=== PATIENT | male | born 1965 | race Caucasian/White ===

== ENCOUNTER → 2016-10-14 | Outpatient (REF) | payer BC, OTHER ==
[~2016-10-14] MED LIST: ACET50TA PO; ADVI200T PO; ALEV220T26 PO; CIPR500T89 PO; FLAG500T PO; HYDR12.56 PO; LISI5TAB PO; MULTTAB4 PO; OMEP20CA3 PO; POTA75TA PO; SIMV20TA2 PO; STOO100T PO; VICO5TA PO; XARE20TA PO; ZEST20TA8 PO
== END ==
LOC: M LAB REF 13:05
PROVIDERS: ATTEND Nurse Practitioner Family
DX: R25.2 Cramp and spasm (principal); I10 Essential (primary) hypertension; M79.662 Pain in left lower leg

== ENCOUNTER → 2016-12-21 | Outpatient (CLI) | payer BC, OTHER ==
--- NOTE | 2016-12-22 08:36 | REP ---
Lumbar spine series: Five views. History: Low back pain. Findings: Five views of the lumbar spine show preserved vertebral body heights and normal alignment. There is mild disc space narrowing at L3-4. Discogenic spurring is seen in the lower thoracic spine. Pedicles and posterior elements are intact. There is no evidence of spondylolysis or spondylolisthesis. A mild levoconvex curve is noted. Sacrum and SI joints are intact. Psoas margins are symmetric. Impression: Mild degenerative disc changes at L3-4. Mild levoconvex curve. Otherwise negative. Signed by Cliff Cuadra MD 12/22/2016 09:51 A
== END ==
LOC: M WUC 18:30
PROVIDERS: ATTEND Physician Assistant
DX: M54.5 Low back pain (principal)

== ENCOUNTER → 2017-04-16 | Outpatient (CLI) | payer OTHER | LOC: M WUC 14:30 | DX: S29.011A Strain of muscle and tendon of front wall of thorax, initial encounter (principal); X58.XXXA Exposure to other specified factors, initial encounter; Y92.89 Other specified places as the place of occurrence of the external cause; Y93.89 Activity, other specified; Y99.8 Other external cause status | CPT/HCPCS: 71101 ==

== ENCOUNTER → 2018-08-15 | Outpatient (CLI) | payer OTHER ==
[~2018-08-15] MED LIST changes: -ACET50TA PO; +MAPA500T17 PO
--- NOTE | 2018-08-15 12:10 | REP ---
MRI LEFT SHOULDER: TECHNIQUE: Axial T2 fat sat, gradient echo, sagittal oblique T2 fat sat, coronal oblique T1, T2 fat sat. There is increased signal involving the subscapularis and supraspinatus tendons. This does not appear to extend through the entire thickness of these tendons. Findings are compatible with moderate tendinopathy and possibly partial tearing of these tendons. There are mild to moderate hypertrophic degenerative changes of the acromioclavicular joint with slight downward sloping of the acromion. The acromion is type 2. Biceps tendon demonstrates increased signal in the bicipital groove consistent with the biceps tendon tear. No Hill-Sachs deformity. The deltoid muscle demonstrates no abnormal signal. There is fraying of the biceps labral complex. The superior labrum appears diffusely frayed and torn. Other portions of the labrum demonstrate no definite tear. I see no paralabral cyst. There is no occult fracture. There is mild fluid in the subacromial subdeltoid bursae. IMPRESSION: Moderate supraspinatus and subscapularis tendinopathy with possible partial tears of these tendons. Moderate hypertrophic degenerative changes of the acromioclavicular joint with a type 2 acromion. Abnormal increased signal involving the biceps tendon in the bicipital groove consistent with a tear of the biceps tendon. There is diffuse fraying and tearing of the superior labrum. There is mild fluid in the subacromial subdeltoid bursae. Electronically Signed by George Mayorga MD 08/16/2018 04:37 P
--- NOTE | 2018-08-16 03:44 | REP ---
Clinical: Trauma. Possible biceps tear. Technique: Real time espinosa scale and color ultrasound examination using linear high frequency transducer. Findings: Directed ultrasound examination of the distal left bicep muscle demonstrates normal muscular striations without fluid, hematoma, abscess, or obvious abnormality to suggest injury. Ultrasound examination of the contralateral distal right by set for comparison was performed and demonstrates similar findings. Impression: No obvious sonographic evidence for biceps injury. Electronically Signed by George Khan MD 08/16/2018 03:35 A
== END ==
LOC: M RAD 07:19
PROVIDERS: ATTEND Orthopaedic Surgery
DX: S46.012A Strain of muscle(s) and tendon(s) of the rotator cuff of left shoulder, initial encounter (principal); X58.XXXA Exposure to other specified factors, initial encounter; Y92.89 Other specified places as the place of occurrence of the external cause

== ENCOUNTER 2019-05-26 09:41 | Emergency (ER) | payer OTHER ==
[~2019-05-26] VITALS: Ht 182.9 cm; Wt 152.6 kg
[2019-05-26] MEDS ORDERED: LOSA100T50 (09:51)
[2019-05-26] MEDS ORDERED: NAPR-885 (09:51)
[2019-05-26] MEDS ORDERED: DILT1CAP3 (09:51)
[2019-05-26] MEDS ORDERED: FURO20TA2 (09:51)
[2019-05-26] MEDS ORDERED: ATOR1TAB21 (09:51)
[2019-05-26] MEDS ORDERED: NS 1,000 ML IV ONE (10:45)
[2019-05-26 11:22] LABS: BASO # 0.1 10^3/uL (0.0-0.2); BASO % 0.3 % (0.0-1.0); EOS % 0.2 % (0.0-3.0); HEMOGLOBIN 15.6 g/dl (13.5-17.5); LYMPH # 1.5 10^3/uL (1.5-5.0); LYMPH % 8.6 % (24.0-44.0); MEAN CORPUSCULAR HEMOGLOBIN 29.7 pg (27.0-33.0); MEAN CORPUSCULAR HGB CONC 33.2 g/dl (32.0-36.5); MEAN CORPUSCULAR VOLUME 89.5 fl (80.0-96.0); MONO # 1.5 10^3/uL (0.0-0.8); MONO % 8.5 % (0.0-5.0); NEUTROPHILS # 14.3 10^3/uL (1.5-8.5); NEUTROPHILS % 81.9 % (36.0-66.0); PLATELET COUNT, AUTOMATED 205 10^3/uL (150-450); RED BLOOD COUNT 5.25 10^6/uL (4.30-6.10); WHITE BLOOD COUNT 17.5 10^3/uL (4.0-10.0)
[2019-05-26 11:45] LABS: ALBUMIN 3.5 GM/DL (3.2-5.2); ALT/SGPT 41 U/L (12-78); BILIRUBIN,DIRECT 0.3 MG/DL (0.0-0.2); BILIRUBIN,TOTAL 1.1 MG/DL (0.2-1.0); BLOOD UREA NITROGEN 18 MG/DL (7-18); CALCIUM LEVEL 8.3 MG/DL (8.5-10.1); CARBON DIOXIDE LEVEL 24 MEQ/L (21-32); CHLORIDE LEVEL 109 MEQ/L (98-107); CREATININE FOR GFR 0.91 MG/DL (0.70-1.30); GLOMERULAR FILTRATION RATE > 60.0 (>56); GLUCOSE, FASTING 99 MG/DL (70-100); LIPASE 108 U/L (73-393); POTASSIUM SERUM 4.1 MEQ/L (3.5-5.1); SODIUM LEVEL 141 MEQ/L (136-145); TOTAL PROTEIN 6.6 GM/DL (6.4-8.2)
--- NOTE | 2019-05-26 11:59 | REP ---
Clinical: Fever and suprapubic pain. Technique: Axial noncontrast images from the lung bases to the pubic symphysis with coronal and sagittal re-formations. Comparison: 03/24/2013 Findings: Lung bases demonstrate a small area of suspected nodularity/scarring along the medial paraspinal right lower lobe. Stable hepatic cyst unchanged from 2013. Spleen, pancreas, gallbladder, bilateral adrenal glands and kidneys are normal for noncontrast evaluation. The enteric system is without obstruction or acute inflammatory process. Normal terminal ileum and appendix are identified in the right lower quadrant. Evidence of prior partial sigmoid resection. Scattered colonic diverticula noted without acute diverticulitis. Pelvis demonstrates collapsed bladder and stable prostatomegaly. No ascites. No free air. No adenopathy. Abdominal aorta without aneurysm. Musculoskeletal structures demonstrate age-related degenerative changes without acute osseous abnormality. Impression: 1. Chronic-appearing findings as described above. 2. No obvious acute abdominopelvic pathology appreciated. Electronically Signed by George Khan MD 05/26/2019 11:50 A
[2019-05-26 12:40] LABS: INFLUENZA A AMPLIFICATION NEGATIVE (NEGATIVE); INFLUENZA B AMPLIFICATION NEGATIVE (NEGATIVE)
[2019-05-26] MEDS ORDERED: KETOROLAC 30 MG/ML VIAL (J1885) IV ONE (13:30)
[2019-05-26] MEDS ORDERED: cefTRIAXone SOD 1 GM in D5W MINI-BAG PLUS 50 ML IV ONE (13:30)
[2019-05-26] MEDS ORDERED: ONDANSETRON 4MG/2ML VIAL (J2405) IV ONE (14:15)
[2019-05-26] MEDS ORDERED: MORPHINE 4 MG/ML 1ML VIAL/SYRINGE (J2270) IV ONE (14:15)
[2019-05-26] MEDS ORDERED: PHENAZOPYRIDINE 100 MG TAB PO ONE (15:00)
--- NOTE | 2019-05-26 15:01 | REP ---
Clinical: Elevated liver function tests and abdominal pain. Technique: Real time espinosa scale ultrasound examination using curved array transducer. Findings: The liver is enlarged measuring 23 cm craniocaudal length and demonstrates increased echogenicity suggesting fatty infiltration. No focal hepatic lesion identified. Incidental 4 centimeter cyst noted in the right lobe approaching the dome. The pancreas is unremarkable. The gallbladder demonstrates 7 mm polyp without gallstones or wall thickening. No biliary ductal dilatation is appreciated and the common bile duct measures 5.3 mm diameter. The right kidney is normal in reniform shape without hydronephrosis and measures 11.8 x 6.1 x 5.5 cm. No ascites. Impression: 1. Hepatomegaly and hepatic steatosis. 2. 4 cm simple hepatic cyst. 3. 7 mm benign appearing gallbladder polyp. Electronically Signed by George Khan MD 05/26/2019 02:53 P
[2019-05-26] MEDS ORDERED: PYRI1TAB5 PO (16:29)
[2019-05-26] MEDS ORDERED: CIPR-249 PO (16:36)
[2019-05-26] MEDS ORDERED: MAGNESIUM CITRATE 300 ML BTL PO ONE (16:45)
[2019-05-26 16:58] VITALS: BP 118/59
[2019-05-26 20:56] LABS: CHLAMYDIA DNA AMPLIFICATION NEGATIVE (NEGATIVE); GC DNA AMPLIFICATION NEGATIVE (NEGATIVE)
--- NOTE | 2019-05-27 06:32 | ED PDOC ---
Post-Departure Follow-Up dr stallings faxed formal report of us for fu Molly Joy MD May 27, 2019 06:32
== END 2019-05-26 17:06 | disposition home or self-care (01) ==
LOC: M ED 09:41
DX: N10 Acute pyelonephritis (principal); I10 Essential (primary) hypertension; G47.30 Sleep apnea, unspecified; F41.9 Anxiety disorder, unspecified; K21.9 Gastro-esophageal reflux disease without esophagitis; M19.90 Unspecified osteoarthritis, unspecified site; Z79.899 Other long term (current) drug therapy; Z99.89 Dependence on other enabling machines and devices; F17.210 Nicotine dependence, cigarettes, uncomplicated
CPT/HCPCS: 74176; 76705; 80048; 80076; 81001; 83690; 85025; 87040; 87088; 87186; 87491; 87502; 87591; 96374; 96375; 99284; J0696; J1885; J2270; J2405

== ENCOUNTER 2019-06-17 09:49 | Emergency (ER) | payer OTHER ==
[~2019-06-17] VITALS: Ht 182.9 cm; Wt 159.1 kg
[~2019-06-17 09:49] MED LIST changes: +ATOR1TAB21; +CIPR-249 PO; +DILT1CAP3; +FURO20TA2; +LOSA100T50; +NAPR-885; +PYRI1TAB5 PO
[2019-06-17] MEDS ORDERED: BUPIVACAINE HCL 0.25% 10 ML VIAL SC ONE (10:45)
[2019-06-17] MEDS ORDERED: ACETAMINOPHEN 325 MG TAB PO ONE (10:45)
[2019-06-17] MEDS ORDERED: CYCLOBENZAPRINE 10 MG TAB PO ONE (10:45)
[2019-06-17 11:29] VITALS: BP 142/67
[2019-06-17] MEDS ORDERED: META1TAB23 PO (12:01)
[2019-06-17] MEDS ORDERED: PERC5TAB12 PO (12:01)
[2019-06-18] MEDS ORDERED: OXYC1TAB23 (15:27)
[2019-06-18] MEDS ORDERED: META1TAB22 (15:27)
== END 2019-06-17 12:12 | disposition home or self-care (01) ==
LOC: M ED 09:49
DX: M54.6 Pain in thoracic spine (principal); G89.29 Other chronic pain; M46.94 Unspecified inflammatory spondylopathy, thoracic region; I10 Essential (primary) hypertension; G47.30 Sleep apnea, unspecified; K21.9 Gastro-esophageal reflux disease without esophagitis; F17.210 Nicotine dependence, cigarettes, uncomplicated; Z79.899 Other long term (current) drug therapy

== ENCOUNTER 2019-06-18 15:15 | Emergency (ER) | payer OTHER ==
[~2019-06-18] VITALS: Ht 182.9 cm; Wt 154.0 kg
[~2019-06-18 15:15] MED LIST changes: +META1TAB23 PO; +PERC5TAB12 PO
[2019-06-18] MEDS ORDERED: OXYC1TAB23 (15:27)
[2019-06-18] MEDS ORDERED: META1TAB22 (15:27)
[2019-06-18] MEDS ORDERED: diazePAM 10 MG TAB PO ONE (18:00)
[2019-06-18] MEDS ORDERED: LIDOCAINE 5% (LIDODERM) PATCH TD ONE (18:00)
[2019-06-18] MEDS ORDERED: KETOROLAC 60 MG/2 ML VIAL (J1885) IM ONE (18:00)
--- NOTE | 2019-06-18 19:01 | REPVR ---
PROCEDURE INFORMATION: Exam: CT Thoracic Spine Without Contrast Exam date and time: 06/18/2019 5:57 PM Age: 53 years old Clinical indication: Pain in thoracic spine; Additional info: Pain thoracic spine, no jennifer, meds no help TECHNIQUE: Imaging protocol: Computed tomography images of the thoracic spine without contrast. Radiation optimization: All CT scans at this facility use at least one of these dose optimization techniques: automated exposure control; mA and/or kV adjustment per patient size (includes targeted exams where dose is matched to clinical indication); or iterative reconstruction. COMPARISON: CR SPINE LS COMPLETE 12/21/2016 6:37 PM FINDINGS: Vertebrae: Degenerative spondylosis lower cervical spine. Mild degenerative spondylosis thoracic spine. Discs/Spinal canal/Neural foramina: [id number] degenerative spinal stenosis at T7-T8 and mild degenerative central spinal stenosis at T8-T9. Soft tissues: Unremarkable. Liver: Low-attenuation lesion in the right lobe of the liver measures 4.9 cm likely representing a cyst. IMPRESSION: 1. Iheo-[id number] degenerative spinal stenosis at T7-T8 and mild degenerative central spinal stenosis at T8-T9. 2. No acute findings. Electronically signed by: Favian Leslie On 06/18/2019 19:01:03 PM
--- NOTE | 2019-06-18 20:08 | REP ---
Chest x-ray: Two views. History: Scapular back pain . Comparison study: April 16, 2017 . Findings: The lungs are well inflated and free of infiltrate. The pleural angles are sharp. The heart size is normal. Pulmonary vasculature is not increased. No significant bony abnormality is seen. There are mild degenerative disc spurs in the mid and lower thoracic spine. Impression: Mild discogenic spurring in the lower thoracic spine. Otherwise negative chest x-ray. Electronically Signed by Cliff Cuadra MD 06/18/2019 07:59 P
--- NOTE | 2019-06-18 20:18 | REPVR ---
PROCEDURE INFORMATION: Exam: US Duplex Left Upper Extremity Veins, Limited Exam date and time: 06/18/2019 8:08 PM Age: 53 years old Clinical indication: Pain; Other: Numb/tingling; Arm, upper; Left; Additional info: Lue pain, tingling TECHNIQUE: Imaging protocol: Real-time Duplex ultrasound of the Left Upper Extremity with 2-D espinosa scale, color Doppler flow and spectral waveform analysis with image documentation. Limited exam focused on the left upper extremity veins. COMPARISON: No relevant prior studies available. FINDINGS: Left deep veins: Unremarkable. Axillary and brachial veins are patent throughout without thrombus. Normal Doppler waveforms. Normal compressibility and/or augmentation response. Visualized internal jugular and subclavian veins are patent. Left superficial veins: Unremarkable. Visualized cephalic and basilic veins are patent without thrombus. Soft tissues: Unremarkable. IMPRESSION: No acute findings. No evidence of deep vein thrombosis. Electronically signed by: Favian Leslie On 06/18/2019 20:17:42 PM
[2019-06-18 20:42] LABS: BASO # 0.1 10^3/uL (0.0-0.2); BASO % 0.7 % (0.0-1.0); EOS # 0.1 10^3/uL (0.0-0.5); EOS % 1.4 % (0.0-3.0); HEMATOCRIT 48.8 % (42.0-52.0); HEMOGLOBIN 15.8 g/dl (13.5-17.5); LYMPH # 2.8 10^3/uL (1.5-5.0); LYMPH % 33.2 % (24.0-44.0); MEAN CORPUSCULAR HEMOGLOBIN 28.9 pg (27.0-33.0); MEAN CORPUSCULAR HGB CONC 32.4 g/dl (32.0-36.5); MEAN CORPUSCULAR VOLUME 89.4 fl (80.0-96.0); MONO # 0.8 10^3/uL (0.0-0.8); MONO % 9.4 % (0.0-5.0); NEUTROPHILS # 4.6 10^3/uL (1.5-8.5); NEUTROPHILS % 54.8 % (36.0-66.0); PLATELET COUNT, AUTOMATED 239 10^3/uL (150-450); RED BLOOD COUNT 5.46 10^6/uL (4.30-6.10); WHITE BLOOD COUNT 8.4 10^3/uL (4.0-10.0)
[2019-06-18] MEDS ORDERED: **NOTE PATIENT COMMENT** MISC XX SCH (21:00)
[2019-06-18 21:13] LABS: CK-MB VALUE MASS 2.6 NG/ML (<3.6); CPK CREATINE PHOSPHOKINASE 1457 U/L (39-308); MB/CK RELATIVE INDEX 0.18 (< OR =4); TROPONIN I < 0.02 NG/ML (< 0.10)
--- NOTE | 2019-06-18 21:19 | ECGEPIP ---
[facility] - ED Test Date: 2019-06-18 Pat Name: RAHUL VAZQUEZ Department: Room: - Gender: Male [employer]: NALDO : 1965 Requested By: SIM Montelongo PA-C Order Number: [id number] Reading MD: Deepak Noe Measurements Intervals Gratz Rate: 56 P: 43 IL: 190 QRS: 47 QRSD: 104 T: 23 QT: 440 QTc: 426 Interpretive Statements SINUS BRADYCARDIA motion artifact Nonspecific ST-T wave abnormalities Comparison tracing not on file Electronically Signed on 06-18-2019 21:19:01 EST by Deepak Noe
[2019-06-18] MEDS ORDERED: MORPHINE 4 MG/ML 1ML VIAL/SYRINGE (J2270) IV ONE (22:00)
[2019-06-18] MEDS ORDERED: NS 1,000 ML IV ONE ×2 (22:00→22:45)
[2019-06-19] MEDS ORDERED: NORC1TAB7 PO ×2 (00:08→00:27)
[2019-06-19] MEDS ORDERED: ROBA750T4 PO ×2 (00:09→00:27)
[2019-06-19 00:15] VITALS: BP 137/85
[2019-06-19] MEDS ORDERED: NORCO 5/325MG TABLET (BULK FOR ED) PO ONE (00:15)
== END 2019-06-19 00:33 | disposition home or self-care (01) ==
LOC: M ED 15:15
DX: R74.8 Abnormal levels of other serum enzymes (principal); M54.9 Dorsalgia, unspecified; M48.04 Spinal stenosis, thoracic region; M25.78 Osteophyte, vertebrae; K76.89 Other specified diseases of liver; I10 Essential (primary) hypertension; E78.5 Hyperlipidemia, unspecified; F17.210 Nicotine dependence, cigarettes, uncomplicated; Z79.899 Other long term (current) drug therapy
CPT/HCPCS: 71046; 72128; 80047; 82550; 82553; 84484; 85025; 93005; 93971; 96361; 96372; 96374; 99284; J1885; J2270

== ENCOUNTER → 2019-07-07 | Outpatient (CLI) | payer OTHER ==
[~2019-07-07] MED LIST changes: +META1TAB22; +NORC1TAB7 PO; +OXYC1TAB23; +ROBA750T4 PO
--- NOTE | 2019-07-07 12:53 | REPVR ---
PROCEDURE INFORMATION: Exam: MR Cervical Spine Without Contrast Exam date and time: 07/07/2019 10:59 AM Age: 53 years old Clinical indication: Radiculopathy; Cervical region TECHNIQUE: Imaging protocol: Multiplanar magnetic resonance images of the cervical spine without contrast. COMPARISON: CR SPINE LS COMPLETE 12/21/2016 6:37 PM FINDINGS: Slightly limited by motion on multiple sequences. Straightened cervical spine with no segmental subluxation. Vertebral body height, morphology and marrow signal are normal, aside from degenerative reactive endplate osteophytes and endplate changes particularly at C5-C6 and C6-C7 with disc height loss and disc desiccation change at these levels. No fracture or destructive process. Cervical cord is normal in morphology and signal. Imaged structures within the posterior fossa are unremarkable. C2-3: No significant canal or foraminal stenosis. C3-4: Minor ridging disc/osteophyte complex slightly indenting the ventral thecal sac and effacing the ventral CSF space. Moderate left-sided and mild right-sided neural foraminal stenosis secondary to uncovertebral arthropathy. C4-C5: No spinal canal stenosis. Mild to moderate right neural foraminal stenosis secondary to asymmetric uncovertebral hypertrophy. C5-C6: Ridging disc/osteophyte complex with mild spinal canal stenosis and mild to moderate osseous neural foraminal stenoses. C6-C7: Ridging disc/osteophyte complex slightly asymmetrically worse to the right of midline narrowing the ventral CSF space, without indentation of the cord. Moderately severe right neural foraminal stenosis secondary to uncovertebral osteophytes. C7-T1: Asymmetric right foraminal disc protrusion or subligamentous disc extrusion narrowing the left neural foramen and measuring 4 mm AP No focal prevertebral soft tissue abnormality. IMPRESSION: 1. Left lateral foraminal disc protrusion or subligamentous disc extrusion at C7-T1 measuring 4 mm AP, narrowing the left neural foramen and potentially impacting the exiting nerve root. 2. Degenerative spondylosis C3-C4 through C6-C7 with mild canal stenosis and moderate foraminal stenoses as described above. No acute disc extrusion at these levels. Electronically signed by: Chet Prescott On 07/07/2019 12:52:45 PM
== END ==
LOC: M RAD 09:30
PROVIDERS: ATTEND Orthopaedic Surgery
DX: M54.12 Radiculopathy, cervical region (principal); M51.25 Other intervertebral disc displacement, thoracolumbar region; M47.892 Other spondylosis, cervical region; M48.02 Spinal stenosis, cervical region

== ENCOUNTER → 2020-09-11 | Outpatient (CLI) | payer BC ==
--- NOTE | 2020-09-12 08:18 | REP ---
INDICATION: SPRAIN RT KNEE, R/O FX. COMPARISON: No comparison radiographs. Comparison MRI study 09 November 2019.. TECHNIQUE: Axial, coronal, and sagittal imaging planes utilized. T1, proton density and T2 weighted scans are obtained in the usual fashion with without fat saturation. FINDINGS: Cortical and medullary bone signal intensity are normal. There is a mild to moderate joint effusion. A Rebollar's cyst is seen in the posteromedial popliteal soft tissues. The femoral trochlear notch is rather shallow in the patella is seen position somewhat lateral with regard to it. 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 These findings are unchanged. Anterior and posterior cruciate ligaments are intact. Patellar and quadriceps tendons are unremarkable. There is no evidence of medial or lateral collateral ligament disruption. There is some diffuse periarticular subcutaneous edema anteriorly and medially. This was present previously. The lateral meniscus remains intact in appearance. There is however a new complex tear involving the posterior horn of the medial meniscus along its superior margin. No displaced meniscal material is appreciated. Is no other articular cartilage lesion is appreciated. IMPRESSION: Interval complex tear posterior horn medial meniscus. Joint effusion and Rebollar's cyst. Some periarticular edema. Shallow trochlear groove and somewhat laterally positioned patella with central patellar chondromalacia <Electronically signed by Dmitriy Cuadra > 09/12/20 [id number]
== END ==
LOC: M RAD 17:36
PROVIDERS: ATTEND Physician Assistant
DX: S83.91XA Sprain of unspecified site of right knee, initial encounter (principal); X58.XXXA Exposure to other specified factors, initial encounter; Y92.9 Unspecified place or not applicable; M71.21 Synovial cyst of popliteal space [Baker], right knee

== ENCOUNTER → 2020-10-21 | Outpatient (CLI) | payer BC ==
[2020-10-21 17:59] LABS: BASO # 0.1 10^3/uL (0.0-0.2); BASO % 0.6 % (0.0-1.0); EOS # 0.1 10^3/uL (0.0-0.5); HEMATOCRIT 49.2 % (42.0-52.0); LYMPH # 2.1 10^3/uL (1.5-5.0); MEAN CORPUSCULAR HEMOGLOBIN 29.4 pg (27.0-33.0); MEAN CORPUSCULAR HGB CONC 32.5 g/dl (32.0-36.5); MEAN CORPUSCULAR VOLUME 90.3 fl (80.0-96.0); MONO % 12.5 % (2.0-8.0); NEUTROPHILS # 4.7 10^3/uL (1.5-8.5); NEUTROPHILS % 59.5 % (36.0-66.0); PLATELET COUNT, AUTOMATED 224 10^3/uL (150-450); RED BLOOD COUNT 5.45 10^6/uL (4.30-6.10)
== END ==
LOC: M PLALAB 14:50
DX: M17.11 Unilateral primary osteoarthritis, right knee (principal); S83.231D Complex tear of medial meniscus, current injury, right knee, subsequent encounter; X58.XXXD Exposure to other specified factors, subsequent encounter

== ENCOUNTER → 2022-09-29 | Outpatient (REF) | payer BC ==
[~2022-09-29] MED LIST changes: +DILT180C38; -DILT1CAP3; +LOSA100T46; -LOSA100T50
[2022-09-29 17:56] LABS: HEMOGLOBIN A1c 5.1 % (4.0-6.0)
[2022-09-29 18:09] LABS: ALBUMIN 3.9 G/DL (3.2-5.2); ALKALINE PHOSPHATASE 50 U/L (46-116); ALT/SGPT 51 U/L (7.0-40); AST/SGOT 31 U/L (<34); BILIRUBIN,TOTAL 0.6 MG/DL (0.3-1.2); BLOOD UREA NITROGEN 17 MG/DL (9-23); CALCIUM LEVEL 8.9 MG/DL (8.5-10.1); CARBON DIOXIDE LEVEL 26 MMOL/L (20-31); CHLORIDE LEVEL 106 MMOL/L (98-107); CHOLESTEROL LEVEL 124 MG/DL (<200); CHOLESTEROL RISK RATIO 3.55 (<5); CREATININE FOR GFR 0.92 MG/DL (0.70-1.30); GLOMERULAR FILTRATION RATE > 60.0 (>56); GLUCOSE, FASTING 68 MG/DL (60-100); HDL CHOLESTEROL 34.9 MG/DL (>40); LDL CHOLESTEROL 73.5 MG/DL (<100); NON-HDL-C 89.1 MG/DL; POTASSIUM SERUM 4.1 MMOL/L (3.5-5.1); SODIUM LEVEL 141 MMOL/L (136-145); TOTAL PROTEIN 6.6 G/DL (5.7-8.2); TRIGLYCERIDES LEVEL 78 MG/DL (<150)
== END ==
LOC: M LAB REF 16:22
PROVIDERS: ATTEND Internal Medicine
DX: E11.9 Type 2 diabetes mellitus without complications (principal); I10 Essential (primary) hypertension; E78.00 Pure hypercholesterolemia, unspecified

== ENCOUNTER → 2023-03-17 | Day surgery (SDC) | payer BC ==
[~2023-03-17] VITALS: Ht 182.9 cm; Wt 144.3 kg
[~2023-03-17] MED LIST changes: -ATOR1TAB21; +ATOR1TAB21 PO; +DILT180C39 PO; -FURO20TA2; +FURO20TA2 PO; +LIDOCAINE 2% 100MG/5ML SDV (FOR ANES.) As Ordered ONE; -LOSA100T46; +LOSA100T46 PO; +METF500T13 PO; +NS 1,000 ML IV ONE; +OMEP-173 PO; +SEMA2PEN; +THERTAB52 PO; +propofoL 200 MG/20 ML VIAL As Ordered ONE
[2023-03-17 07:53] VITALS: TEMP 96.9
[2023-03-17 08:08] VITALS: BP 141/83; O2SAT 93
== END | disposition home or self-care (01) ==
LOC: M OPP 06:54
PROVIDERS: ATTEND Surgery
DX: Z12.11 Encounter for screening for malignant neoplasm of colon (principal); Z12.12 Encounter for screening for malignant neoplasm of rectum; D12.2 Benign neoplasm of ascending colon; K57.30 Diverticulosis of large intestine without perforation or abscess without bleeding; Z87.19 Personal history of other diseases of the digestive system; K21.9 Gastro-esophageal reflux disease without esophagitis; I10 Essential (primary) hypertension; E77.9 Disorder of glycoprotein metabolism, unspecified; E78.00 Pure hypercholesterolemia, unspecified; G47.30 Sleep apnea, unspecified; Z79.899 Other long term (current) drug therapy; Z79.84 Long term (current) use of oral hypoglycemic drugs; F17.210 Nicotine dependence, cigarettes, uncomplicated

== ENCOUNTER → 2023-04-20 | Outpatient (REF) | payer BC ==
[~2023-04-20] MED LIST changes: -LIDOCAINE 2% 100MG/5ML SDV (FOR ANES.) As Ordered ONE; -NS 1,000 ML IV ONE; -propofoL 200 MG/20 ML VIAL As Ordered ONE
[2023-04-20 17:08] LABS: APPEARANCE, URINE HAZY (CLEAR); BACTERIA, URINE AUTO NEGATIVE (NEGATIVE); BILIRUBIN, URINE AUTO NEGATIVE (NEGATIVE); BLOOD, URINE BLOOD NEGATIVE (NEGATIVE); COLOR, URINE YELLOW (YELLOW); GLUCOSE, URINE (UA) AUTO NEGATIVE (NEGATIVE); KETONE, URINE AUTO NEGATIVE (NEGATIVE); LEUKOCYTE ESTERASE, URINE AUTO NEGATIVE (NEGATIVE); MUCUS, URINE SMALL (NEGATIVE); NITRITE, URINE AUTO NEGATIVE (NEGATIVE); PROTEIN, URINE AUTO 3+ mg/dL (NEGATIVE); RBC, URINE AUTO 4 /HPF (0-3); SQUAMOUS EPITHELIAL CELL UR AU 0 /HPF (0-6); UROBILINOGEN, URINE AUTO 0.2 mg/dL (0.0-2.0); WBC, URINE AUTO 2 /HPF (0-3)
[2023-04-20 17:17] LABS: BASO # 0.1 10^3/uL (0.0-0.2); BASO % 0.6 % (0.0-1.0); EOS # 0.1 10^3/uL (0.0-0.5); EOS % 0.7 % (0.0-3.0); HEMATOCRIT 51.2 % (42.0-52.0); LYMPH # 2.4 10^3/uL (1.5-5.0); LYMPH % 27.8 % (24.0-44.0); MEAN CORPUSCULAR HEMOGLOBIN 29.9 pg (27.0-33.0); MEAN CORPUSCULAR HGB CONC 33.2 g/dl (32.0-36.5); MEAN CORPUSCULAR VOLUME 90.1 fl (80.0-96.0); MONO # 0.7 10^3/uL (0.0-0.8); NEUTROPHILS # 5.4 10^3/uL (1.5-8.5); NEUTROPHILS % 62.4 % (36.0-66.0); PLATELET COUNT, AUTOMATED 243 10^3/uL (150-450); RED BLOOD COUNT 5.68 10^6/uL (4.30-6.10); WHITE BLOOD COUNT 8.6 10^3/uL (4.0-10.0)
[2023-04-20 17:28] LABS: PSA SCREENING 0.63 NG/ML (< 4.00)
[2023-04-20 17:29] LABS: CREATININE, URINE 229.2 MG/DL
[2023-04-20 17:31] LABS: ALBUMIN 3.7 G/DL (3.2-5.2); ALKALINE PHOSPHATASE 47 U/L (46-116); ALT/SGPT 56 U/L (7.0-40); AST/SGOT 30 U/L (<34); BILIRUBIN,TOTAL 0.6 MG/DL (0.3-1.2); BLOOD UREA NITROGEN 22 MG/DL (9-23); CALCIUM LEVEL 8.8 MG/DL (8.5-10.1); CARBON DIOXIDE LEVEL 26 MMOL/L (20-31); CHLORIDE LEVEL 106 MMOL/L (98-107); CHOLESTEROL LEVEL 186 MG/DL (<200); CREATININE FOR GFR 0.77 MG/DL (0.70-1.30); GLOMERULAR FILTRATION RATE > 60.0 (>56); GLUCOSE, FASTING 77 MG/DL (60-100); HDL CHOLESTEROL 40.4 MG/DL (>40); LDL CHOLESTEROL 98.2 MG/DL (<100); NON-HDL-C 145.6 MG/DL; SODIUM LEVEL 140 MMOL/L (136-145); TOTAL PROTEIN 6.6 G/DL (5.7-8.2); TRIGLYCERIDES LEVEL 237 MG/DL (<150)
[2023-04-20 17:45] LABS: MALB URINE SIEMENS > 3800.0 MG/L; MAU/CREAT RATIO 1657.9 MCG/MG (0.0-30.0)
[2023-04-20 21:13] LABS: HEMOGLOBIN A1c 5.2 % (4.0-6.0)
== END ==
LOC: M LAB REF 16:29
PROVIDERS: ATTEND Internal Medicine
DX: E11.9 Type 2 diabetes mellitus without complications (principal); I10 Essential (primary) hypertension; E78.00 Pure hypercholesterolemia, unspecified; G47.33 Obstructive sleep apnea (adult) (pediatric)

== ENCOUNTER → 2023-10-26 | Outpatient (REF) | payer BC ==
[2023-10-26 17:22] LABS: BASO # 0.1 10^3/uL (0.0-0.2); BASO % 0.9 % (0.0-1.0); EOS # 0.1 10^3/uL (0.0-0.5); HEMOGLOBIN 16.8 g/dl (13.5-17.5); LYMPH # 1.6 10^3/uL (1.5-5.0); LYMPH % 22.1 % (24.0-44.0); MEAN CORPUSCULAR HEMOGLOBIN 30.3 pg (27.0-33.0); MEAN CORPUSCULAR HGB CONC 33.6 g/dl (32.0-36.5); MEAN CORPUSCULAR VOLUME 90.3 fl (80.0-96.0); MONO # 0.5 10^3/uL (0.0-0.8); MONO % 7.4 % (2.0-8.0); NEUTROPHILS # 4.8 10^3/uL (1.5-8.5); PLATELET COUNT, AUTOMATED 229 10^3/uL (150-450); RED BLOOD COUNT 5.54 10^6/uL (4.30-6.10)
[2023-10-26 17:47] LABS: ALBUMIN 3.7 G/DL (3.2-5.2); ALKALINE PHOSPHATASE 52 U/L (46-116); ALT/SGPT 64 U/L (7.0-40); AST/SGOT 42 U/L (<34); BILIRUBIN,TOTAL 0.4 MG/DL (0.3-1.2); BLOOD UREA NITROGEN 26 MG/DL (9-23); CALCIUM LEVEL 9.3 MG/DL (8.5-10.1); CARBON DIOXIDE LEVEL 26 MMOL/L (20-31); CHLORIDE LEVEL 110 MMOL/L (98-107); CHOLESTEROL LEVEL 154 MG/DL (<200); CHOLESTEROL RISK RATIO 4.62 (<5); CREATININE FOR GFR 0.87 MG/DL (0.70-1.30); GLOMERULAR FILTRATION RATE > 60.0 (>56); GLUCOSE, FASTING 82 MG/DL (60-100); HDL CHOLESTEROL 33.3 MG/DL (>40); LDL CHOLESTEROL 90.3 MG/DL (<100); NON-HDL-C 120.7 MG/DL; POTASSIUM SERUM 4.1 MMOL/L (3.5-5.1); SODIUM LEVEL 143 MMOL/L (136-145); TOTAL PROTEIN 6.6 G/DL (5.7-8.2); TRIGLYCERIDES LEVEL 152 MG/DL (<150)
[2023-10-26 18:04] LABS: MALB URINE SIEMENS > 3800.0 MG/L; MAU/CREAT RATIO 1376.8 MCG/MG (0.0-30.0)
[2023-10-26 18:33] LABS: HEMOGLOBIN A1c 5.1 % (4.0-6.0)
== END ==
LOC: M LAB REF 16:15
PROVIDERS: ATTEND Internal Medicine
DX: I10 Essential (primary) hypertension (principal); E78.00 Pure hypercholesterolemia, unspecified; E11.9 Type 2 diabetes mellitus without complications

== ENCOUNTER → 2023-10-31 | Outpatient (CLI) | payer BC | LOC: M RAD 15:50 | PROVIDERS: ATTEND Nurse Practitioner Family | DX: M79.662 Pain in left lower leg (principal); R59.0 Localized enlarged lymph nodes ==

== ENCOUNTER → 2023-11-24 | Outpatient (REF) | payer BC, OTHER ==
[2023-11-24 16:46] LABS: BASO # 0.1 10^3/uL (0.0-0.2); BASO % 0.8 % (0.0-1.0); EOS # 0.1 10^3/uL (0.0-0.5); EOS % 1.4 % (0.0-3.0); HEMATOCRIT 49.4 % (42.0-52.0); HEMOGLOBIN 16.6 g/dl (13.5-17.5); LYMPH # 2.1 10^3/uL (1.5-5.0); LYMPH % 28.7 % (24.0-44.0); MEAN CORPUSCULAR HGB CONC 33.6 g/dl (32.0-36.5); MEAN CORPUSCULAR VOLUME 89.2 fl (80.0-96.0); MONO # 0.7 10^3/uL (0.0-0.8); MONO % 8.9 % (2.0-8.0); NEUTROPHILS # 4.4 10^3/uL (1.5-8.5); NEUTROPHILS % 59.9 % (36.0-66.0); PLATELET COUNT, AUTOMATED 264 10^3/uL (150-450); RED BLOOD COUNT 5.54 10^6/uL (4.30-6.10); WHITE BLOOD COUNT 7.4 10^3/uL (4.0-10.0)
[2023-11-24 16:53] LABS: ERYTHROCYTE SEDIMENTATION RATE 25 mm/hr (0-20)
[2023-11-24 17:15] LABS: C REACTIVE PROTEIN QUANTITATIV < 0.40 MG/DL (<1.0)
[2023-11-24 17:16] LABS: ALBUMIN 3.8 G/DL (3.2-5.2); ALKALINE PHOSPHATASE 53 U/L (46-116); ALT/SGPT 49 U/L (7.0-40); AST/SGOT 27 U/L (<34); BILIRUBIN,TOTAL 0.5 MG/DL (0.3-1.2); BLOOD UREA NITROGEN 18 MG/DL (9-23); CALCIUM LEVEL 9.3 MG/DL (8.5-10.1); CARBON DIOXIDE LEVEL 28 MMOL/L (20-31); CHLORIDE LEVEL 106 MMOL/L (98-107); CREATININE FOR GFR 0.86 MG/DL (0.70-1.30); GLOMERULAR FILTRATION RATE > 60.0 (>56); GLUCOSE, FASTING 74 MG/DL (60-100); POTASSIUM SERUM 3.9 MMOL/L (3.5-5.1); SODIUM LEVEL 139 MMOL/L (136-145)
== END ==
LOC: M LAB REF 16:17
PROVIDERS: ATTEND Nurse Practitioner Family
DX: L03.116 Cellulitis of left lower limb (principal)

== ENCOUNTER → 2023-11-29 | Outpatient (CLI) | payer BC | LOC: M RAD 09:49 | PROVIDERS: ATTEND Nurse Practitioner Family | DX: M79.662 Pain in left lower leg (principal) ==

== ENCOUNTER → 2024-05-31 | Outpatient (REF) | payer BC ==
[~2024-05-31] MED LIST changes: +META-10; -META1TAB22
[2024-05-31 13:14] LABS: BASO % 0.8 % (0.0-1.0); EOS # 0.1 10^3/uL (0.0-0.5); EOS % 2.2 % (0.0-3.0); HEMATOCRIT 49.3 % (42.0-52.0); HEMOGLOBIN 16.6 g/dl (13.5-17.5); LYMPH # 1.1 10^3/uL (1.5-5.0); LYMPH % 22.4 % (24.0-44.0); MEAN CORPUSCULAR HEMOGLOBIN 30.2 pg (27.0-33.0); MEAN CORPUSCULAR HGB CONC 33.7 g/dl (32.0-36.5); MEAN CORPUSCULAR VOLUME 89.8 fl (80.0-96.0); MONO # 0.6 10^3/uL (0.0-0.8); NEUTROPHILS # 3.2 10^3/uL (1.5-8.5); NEUTROPHILS % 63.4 % (36.0-66.0); PLATELET COUNT, AUTOMATED 217 10^3/uL (150-450); RED BLOOD COUNT 5.49 10^6/uL (4.30-6.10); WHITE BLOOD COUNT 5.1 10^3/uL (4.0-10.0)
[2024-05-31 13:17] LABS: ALBUMIN 3.4 G/DL (3.2-5.2); ALKALINE PHOSPHATASE 54 U/L (40-129); ALT/SGPT 59 U/L (7.0-40); AST/SGOT 38 U/L (<34); BILIRUBIN,TOTAL 0.3 MG/DL (0.3-1.2); BLOOD UREA NITROGEN 19 MG/DL (9-23); CALCIUM LEVEL 8.6 MG/DL (8.5-10.1); CARBON DIOXIDE LEVEL 26 MMOL/L (20-31); CHLORIDE LEVEL 106 MMOL/L (98-107); CHOLESTEROL LEVEL 150 MG/DL (<200); CHOLESTEROL RISK RATIO 4.76 (<5); CREATININE FOR GFR 0.84 MG/DL (0.70-1.30); GLOMERULAR FILTRATION RATE > 60.0 (>56); GLUCOSE, FASTING 93 MG/DL (60-100); HDL CHOLESTEROL 31.5 MG/DL (>40); LDL CHOLESTEROL 61.3 MG/DL (<100); NON-HDL-C 118.5 MG/DL; PSA SCREENING 0.64 NG/ML (< 4.00); SODIUM LEVEL 142 MMOL/L (136-145); TOTAL PROTEIN 6.5 G/DL (5.7-8.2); TRIGLYCERIDES LEVEL 286 MG/DL (<150)
[2024-05-31 13:32] LABS: CREATININE, URINE 96.1 MG/DL
[2024-05-31 13:45] LABS: MAU/CREAT RATIO 3665.9 MCG/MG (0.0-30.0)
[2024-05-31 14:02] LABS: HEMOGLOBIN A1c 5.1 % (4.0-6.0)
== END ==
LOC: M LAB REF 12:08
PROVIDERS: ATTEND Internal Medicine
DX: E11.9 Type 2 diabetes mellitus without complications (principal); Z12.5 Encounter for screening for malignant neoplasm of prostate; I10 Essential (primary) hypertension; G47.33 Obstructive sleep apnea (adult) (pediatric); E78.00 Pure hypercholesterolemia, unspecified

== ENCOUNTER → 2024-06-18 | Outpatient (CLI) | payer BC | LOC: M RAD 08:23 | PROVIDERS: ATTEND Internal Medicine | DX: K74.00 Hepatic fibrosis, unspecified (principal); K76.0 Fatty (change of) liver, not elsewhere classified; R16.0 Hepatomegaly, not elsewhere classified ==

== ENCOUNTER → 2024-07-09 | Outpatient (CLI) | payer BC | LOC: M RAD 15:38 | PROVIDERS: ATTEND Internal Medicine | DX: J43.9 Emphysema, unspecified (principal); F17.210 Nicotine dependence, cigarettes, uncomplicated ==

== ENCOUNTER → 2024-08-23 | Day surgery (SDC) | payer BC ==
[~2024-08-23] VITALS: Ht 182.9 cm; Wt 145.1 kg
[~2024-08-23] MED LIST changes: +DILT180C38 PO; +LIDOCAINE 2% 100MG/5ML SDV (FOR ANES.) As Ordered ONE; +NAPR-885 PO; -SEMA2PEN; +SEMA2PEN SC; +VITA100024 PO; +propofoL 200 MG/20 ML VIAL As Ordered ONE
[2024-08-23 09:16] VITALS: TEMP 97.7
[2024-08-23 09:35] VITALS: BP 173/101; O2SAT 97
== END | disposition home or self-care (01) ==
LOC: M OPP 07:39
PROVIDERS: ATTEND Surgery
DX: K22.89 Other specified disease of esophagus (principal); K31.89 Other diseases of stomach and duodenum; K29.70 Gastritis, unspecified, without bleeding; K44.9 Diaphragmatic hernia without obstruction or gangrene; K30 Functional dyspepsia; Z80.0 Family history of malignant neoplasm of digestive organs; Z79.899 Other long term (current) drug therapy; Z79.84 Long term (current) use of oral hypoglycemic drugs; Z79.85 Long-term (current) use of injectable non-insulin antidiabetic drugs; I10 Essential (primary) hypertension; E11.9 Type 2 diabetes mellitus without complications; G47.30 Sleep apnea, unspecified; F17.210 Nicotine dependence, cigarettes, uncomplicated

== ENCOUNTER → 2024-11-29 | Outpatient (CLI) | payer BC ==
[~2024-11-29] MED LIST changes: -LIDOCAINE 2% 100MG/5ML SDV (FOR ANES.) As Ordered ONE; -propofoL 200 MG/20 ML VIAL As Ordered ONE
== END ==
LOC: M RAD 08:34
PROVIDERS: ATTEND Nurse Practitioner Adult Health
DX: R91.8 Other nonspecific abnormal finding of lung field (principal); J98.11 Atelectasis

== ENCOUNTER → 2024-12-11 | Outpatient (REF) | payer BC ==
[~2024-12-11] MED LIST changes: -VITA100024 PO; +VITA100051 PO
[2024-12-11 19:33] LABS: ALT/SGPT 57 U/L (7.0-40); AST/SGOT 35 U/L (<34); CALCIUM LEVEL 9.0 MG/DL (8.5-10.1); CARBON DIOXIDE LEVEL 28 MMOL/L (20-31); CHLORIDE LEVEL 106 MMOL/L (98-107); CHOLESTEROL LEVEL 161 MG/DL (<200); CHOLESTEROL RISK RATIO 4.50 (<5); CREATININE FOR GFR 0.93 MG/DL (0.70-1.30); GLOMERULAR FILTRATION RATE > 90.0 (>56); LDL CHOLESTEROL 82.1 MG/DL (<100); NON-HDL-C 125.3 MG/DL; POTASSIUM SERUM 4.2 MMOL/L (3.5-5.1); SODIUM LEVEL 145 MMOL/L (136-145); TRIGLYCERIDES LEVEL 216 MG/DL (<150)
[2024-12-11 19:48] LABS: ESTIMATED AVERAGE GLUCOSE 103.0 MG/DL (60-110)
== END ==
LOC: M LAB REF 17:36
PROVIDERS: ATTEND Internal Medicine
DX: E11.9 Type 2 diabetes mellitus without complications (principal); I10 Essential (primary) hypertension; K75.81 Nonalcoholic steatohepatitis (NASH)